=== PATIENT | female | born 1970 | race Two or more races ===

== ENCOUNTER 2017-12-23 16:54 | Emergency (ER) | payer OTHER ==
[~2017-12-23] VITALS: Ht 165.1 cm; Wt 63.5 kg
[~2017-12-23 16:54] MED LIST: AYR SALINE NA14.1 GM TP; CEFTIN500 MG PO; FLONASE16 G1 NS; IBUPROFEN800 MG PO; KETO10TA2 PO; LIPO-FLAVONOID1 EACH PO; ORPH100T PO; OSEL75CA PO; TUSSI-PRES LIQ120 ML PO; ZOLOFT25 MG
[2017-12-23] MEDS ORDERED: ZITHROMAX TRI-500 MG PO (20:14)
[2017-12-23] MEDS ORDERED: KETO10TA2 PO (20:14)
[2017-12-23] MEDS ORDERED: FLONASE ALLERG9.9 ML NASAL (20:14)
== END 2017-12-23 20:22 ==
LOC: ER 16:54
DX: J01.00 Acute maxillary sinusitis, unspecified (principal)

== ENCOUNTER 2018-03-27 20:00 | Emergency (ER) | payer OTHER ==
[~2018-03-27] VITALS: Ht 162.6 cm; Wt 68.0 kg
[~2018-03-27 20:00] MED LIST changes: +FLONASE ALLERG9.9 ML NASAL; +ZITHROMAX TRI-500 MG PO
== END 2018-03-27 22:36 | disposition home or self-care (01) ==
LOC: ER 20:00
DX: S83.8X2A Sprain of other specified parts of left knee, initial encounter (principal); S80.02XA Contusion of left knee, initial encounter; X50.9XXA Other and unspecified overexertion or strenuous movements or postures, initial encounter; Y93.89 Activity, other specified; Y92.89 Other specified places as the place of occurrence of the external cause; Y99.8 Other external cause status

== ENCOUNTER 2018-05-10 08:37 | Outpatient (CLI) | payer OTHER | END 2018-05-10 14:16 | disposition home or self-care (01) | LOC: MRI 08:37 | DX: M25.572 Pain in left ankle and joints of left foot (principal) | CPT/HCPCS: 73718 ==

== ENCOUNTER 2018-08-29 13:48 | Emergency (ER) | payer OTHER ==
[~2018-08-29] VITALS: Ht 165.1 cm; Wt 68.0 kg
== END 2018-08-29 18:20 | disposition home or self-care (01) ==
LOC: ER 13:48
DX: M25.572 Pain in left ankle and joints of left foot (principal); M25.562 Pain in left knee

== ENCOUNTER 2019-01-31 21:58 | Emergency (ER) | payer OTHER ==
[~2019-01-31] VITALS: Ht 160 cm; Wt 68.0 kg
[2019-02-01] MEDS ORDERED: GILTUSS TR TAB1 EACH PO (03:25)
[2019-02-01] MEDS ORDERED: FLONASE16 GM NASAL (03:25)
[2019-02-01] MEDS ORDERED: ZITHROMAX500 MG PO (03:25)
[2019-02-01] MEDS ORDERED: MECLIZINE HCL25 MG PO (03:25)
== END 2019-02-01 03:30 | disposition home or self-care (01) ==
LOC: ER 21:58
DX: J01.80 Other acute sinusitis (principal)

== ENCOUNTER 2019-04-16 15:42 | Emergency (ER) | payer OTHER ==
[~2019-04-16] VITALS: Ht 162.6 cm; Wt 68.0 kg
[~2019-04-16 15:42] MED LIST changes: +FLONASE16 GM NASAL; +GILTUSS TR TAB1 EACH PO; +MECLIZINE HCL25 MG PO; +ZITHROMAX500 MG PO
== END 2019-04-16 19:55 | disposition home or self-care (01) ==
LOC: ER 15:42
DX: K21.0 Gastro-esophageal reflux disease with esophagitis (principal); K59.09 Other constipation; R10.13 Epigastric pain

== ENCOUNTER 2019-09-25 15:59 | Emergency (ER) | payer OTHER ==
[~2019-09-25] VITALS: Ht 162.6 cm; Wt 68.0 kg
[2019-09-25] MEDS ORDERED: CLONAZEPAM0.5 M1 (16:06)
== END 2019-09-25 18:20 | disposition home or self-care (01) ==
LOC: ER 15:59
DX: D25.9 Leiomyoma of uterus, unspecified (principal); M54.5 Low back pain; R10.2 Pelvic and perineal pain

== ENCOUNTER 2019-12-13 13:42 | Emergency (ER) | payer OTHER ==
[~2019-12-13] VITALS: Ht 162.6 cm; Wt 68.0 kg
[~2019-12-13 13:42] MED LIST changes: +CLONAZEPAM0.5 M1
== END 2019-12-13 18:17 | disposition home or self-care (01) ==
LOC: ER 13:42
DX: U07.1 COVID-19 (principal); B34.9 Viral infection, unspecified; J32.8 Other chronic sinusitis

== ENCOUNTER 2020-06-14 17:23 | Emergency (ER) | payer OTHER ==
[~2020-06-14] VITALS: Ht 162.6 cm; Wt 68.0 kg
[2020-06-14] MEDS ORDERED: SERTRALINE HCL25 MG PO (17:50)
== END 2020-06-14 20:24 | disposition home or self-care (01) ==
LOC: ER 17:23
DX: S91.052A Open bite, left ankle, initial encounter (principal); W54.0XXA Bitten by dog, initial encounter; Y93.89 Activity, other specified; Y92.018 Other place in single-family (private) house as the place of occurrence of the external cause; Y99.8 Other external cause status

== ENCOUNTER 2021-02-09 17:40 | Emergency (ER) | payer OTHER ==
[~2021-02-09] VITALS: Ht 165.1 cm; Wt 68.0 kg
[~2021-02-09 17:40] MED LIST changes: +SERTRALINE HCL25 MG PO
[2021-02-09] MEDS ORDERED: ZOLOFT25 MG PO (17:53)
[2021-02-09] MEDS ORDERED: NORFLEX100MG PO (20:57)
== END 2021-02-09 21:04 | disposition home or self-care (01) ==
LOC: ER 17:40
DX: S20.229A Contusion of unspecified back wall of thorax, initial encounter (principal); W10.8XXA Fall (on) (from) other stairs and steps, initial encounter; Y92.89 Other specified places as the place of occurrence of the external cause

== ENCOUNTER 2021-12-31 12:47 | Emergency (ER) | payer OTHER ==
[~2021-12-31] VITALS: Ht 160 cm; Wt 68.0 kg
[~2021-12-31 12:47] MED LIST changes: +NORFLEX100MG PO; +ZOLOFT25 MG PO
== END 2021-12-31 17:35 | disposition home or self-care (01) ==
LOC: ER 12:47
DX: G43.909 Migraine, unspecified, not intractable, without status migrainosus (principal); I10 Essential (primary) hypertension

== ENCOUNTER 2022-06-01 12:38 | Emergency (ER) | payer OTHER ==
[~2022-06-01] VITALS: Ht 160 cm; Wt 660.0 kg
[2022-06-01] MEDS ORDERED: CLONAZEPAM0.5 MG PO (12:47)
== END 2022-06-01 18:40 | disposition home or self-care (01) ==
LOC: ER 12:38
DX: S09.8XXA Other specified injuries of head, initial encounter (principal); W22.8XXA Striking against or struck by other objects, initial encounter; Y93.89 Activity, other specified; Y92.89 Other specified places as the place of occurrence of the external cause; M50.322 Other cervical disc degeneration at C5-C6 level

== ENCOUNTER 2022-08-15 10:23 | Emergency (ER) | payer OTHER ==
[~2022-08-15] VITALS: Ht 162.6 cm; Wt 68.0 kg
[~2022-08-15 10:23] MED LIST changes: +CLONAZEPAM0.5 MG PO
== END 2022-08-15 11:22 | disposition home or self-care (01) ==
LOC: ER 10:23
DX: J06.9 Acute upper respiratory infection, unspecified (principal); R53.81 Other malaise